=== PATIENT | male | born 1975 | race Caucasian/White ===

== ENCOUNTER 2017-01-23 18:36 | Emergency (ER) | payer MEDICAID ==
[~2017-01-23] VITALS: Ht 185.4 cm; Wt 104.3 kg
[~2017-01-23 18:36] MED LIST: ACET-6134 PO
--- NOTE | 2017-01-23 19:25 | NUR ---
PT TAKEN TO BED 6
[2017-01-23 19:36] VITALS: BP 142/84
--- NOTE | 2017-01-23 19:36 | NUR ---
41 Y/O M W/C/O DIZZINESS, HEADACHESX 1 WK AND UPPER BACK PAIN X 2 YEARS S/P INJURY AT WORK, GETTING WORSE LATELY. DENIES ANY MED HX.
[2017-01-23] MEDS ORDERED: IBUP-2213 PO (19:42)
--- NOTE | 2017-01-23 19:55 | NUR ---
Dr. Styles evaluating patient at bedside.
[2017-01-23] MEDS ORDERED: KETOROLAC 30 MG/ML VIAL IM ONE (20:05)
[2017-01-23 20:40] VITALS: BP 146/91
--- NOTE | 2017-01-23 20:40 | NUR ---
Patient discharged with v/s stable. Written and verbal after care instructions given and explained. Patient alert, oriented and verbalized understanding of instructions. Ambulatory with steady gait. All questions addressed prior to discharge. ID band removed. Patient advised to follow up with PMD. Rx of VALIUM AND NAPROSYN given. Patient educated on indication of medication including possible reaction and side effects. Opportunity to ask questions provided and answered.
== END 2017-01-23 20:40 | disposition home or self-care (01) ==
LOC: MED 18:36
DX: M54.6 Pain in thoracic spine (principal); Z79.899 Other long term (current) drug therapy
CPT/HCPCS: 93005; 96372; 99283; J1885

== ENCOUNTER 2017-10-30 21:42 | Emergency (ER) | payer MEDICAID ==
[~2017-10-30] VITALS: Ht 182.9 cm; Wt 102.1 kg
[~2017-10-30 21:42] MED LIST changes: +IBUP-2213 PO
[2017-10-30 21:47] VITALS: BP 139/95
--- NOTE | 2017-10-30 21:47 | NUR ---
PT AMBULATED TO ER BED 9
--- NOTE | 2017-10-30 21:50 | NUR ---
PATIENT PRESENTS TO ED WITH PT CAME IN WITH C/O PAIN IN THE CHEST AND THROAT. PT IS A/O X 4. NKA NO PREVIOUS MEDICAL HX . DENIES N/V/D; SKIN IS PINK/WARM/DRY; EVEN AND STEADY GAIT; LUNGS CLEAR BL; HR EVEN AND REGULAR; PT DENIES ANY FEVER, SOB, OR COUGH AT THIS TIME; PATIENT STATES PAIN OF 8/10 AT THIS TIME with chest pain and 7/10 with pain in the throat; VSS; PATIENT POSITIONED FOR COMFORT; HOB ELEVATED; BEDRAILS UP X2; BED DOWN. ER MD MADE AWARE OF PT STATUS.
--- NOTE | 2017-10-30 22:08 | NUR ---
IS WITH PT
[2017-10-30] MEDS ORDERED: KETOROLAC 30 MG/ML VIAL IM ONE (22:10)
--- NOTE | 2017-10-30 22:20 | NUR ---
XRAY IS WITH PT
--- NOTE | 2017-10-30 22:48 | NUR ---
THROAT CULTURE WAS TAKEN TO LAB
--- NOTE | 2017-10-30 23:17 | NUR ---
pt is resting comfortably in bed.
[2017-10-30 23:30] VITALS: BP 139/95
--- NOTE | 2017-10-30 23:30 | NUR ---
Patient discharged with v/s stable. Written and verbal after care instructions given and explained. Patient alert, oriented and verbalized understanding of instructions. Ambulatory with steady gait. All questions addressed prior to discharge. ID band removed. Patient advised to follow up with PMD. Rx of codeine phosphate/promethazine hydrochloride given. Patient educated on indication of medication including possible reaction and side effects. Opportunity to ask questions provided and answered.
== END 2017-10-30 23:30 | disposition home or self-care (01) ==
LOC: MED 21:42
DX: J40 Bronchitis, not specified as acute or chronic (principal)
CPT/HCPCS: 71045; 81002; 87081; 96372; 99285; J1885

== ENCOUNTER 2018-12-03 23:34 | Emergency (ER) | payer SELFPAY ==
[~2018-12-03] VITALS: Ht 182.9 cm; Wt 95.3 kg
[2018-12-03 23:48] VITALS: BP 125/79
--- NOTE | 2018-12-03 23:48 | NUR ---
PATIENT AMBULATED TO ER BED 9.
--- NOTE | 2018-12-03 23:50 | NUR ---
EKG AT BEDSIDE
--- NOTE | 2018-12-03 23:50 | NUR ---
43/M PRESENTED TO ER WITH SON AT BEDSIDE. AMBULATORY. C/O HEADACHE AND CHESTPAIN SINCE YESTERDAY. NO N/V/D. NO SOB. STATES 9/10 PRESSURE RADIATES TO NECK AND BACK. NO MEDICATIONS TAKEN UPON ARIVAL TO ER. STATES HX COUGHING UP PHLEM. NO RX. NO OTHER MEDICAL HX. VITALS WNL. CLEAR BREATH SOUNDS. EVEN CHEST RISE. WILL CONTINUE TO MONITOR.
--- NOTE | 2018-12-03 23:50 | NUR ---
EKG PERFORMED AT BEDSIDE
[2018-12-03] MEDS ORDERED: IBUPROFEN 600 MG TAB PO ONE (23:55)
[2018-12-04 00:15] VITALS: BP 125/79
--- NOTE | 2018-12-04 00:15 | NUR ---
Patient discharged with v/s stable by Dr Felton. Written and verbal after care instructions given and explained by Dr Fleton. Patient alert, oriented and verbalized understanding of instructions. Ambulatory with steady gait. All questions addressed prior to discharge by Dr Felton. ID band removed by Dr Felton. Patient advised to follow up with PMD by Dr Felton. Rx of Naprosyn given by Dr Felton. Patient educated on indication of medication including possible reaction and side effects by Dr Felton. Opportunity to ask questions provided and answered by Dr Felton.
== END 2018-12-04 00:14 | disposition home or self-care (01) ==
LOC: MED 23:34
DX: S13.9XXA Sprain of joints and ligaments of unspecified parts of neck, initial encounter (principal); M54.5 Low back pain; R51 Headache; Z79.1 Long term (current) use of non-steroidal anti-inflammatories (NSAID); X58.XXXA Exposure to other specified factors, initial encounter; Y93.89 Activity, other specified; Y92.89 Other specified places as the place of occurrence of the external cause; Y99.8 Other external cause status
CPT/HCPCS: 93005; 99283

== ENCOUNTER 2020-10-16 23:37 | Emergency (ER) | payer MEDICAID ==
[~2020-10-16] VITALS: Ht 182.9 cm; Wt 107.0 kg
[~2020-10-16 23:37] MED LIST changes: +ACET-10509 PO; -ACET-6134 PO
[2020-10-16 23:45] VITALS: BP 154/104
[2020-10-17] MEDS ORDERED: NACL 0.9% 1,000 ML IV ONE (01:10)
[2020-10-17 01:38] LABS: EOSINOPHILS # (AUTO) 0.3 K/uL (0-0.4); EOSINOPHILS % (AUTO) 6.3 % (0.0-4.0); HEMATOCRIT 40.2 % (36-52); HEMOGLOBIN 13.6 g/dL (12.0-18.0); LYMPHOCYTES # (AUTO) 1.7 K/uL (2.0-11.5); LYMPHOCYTES % (AUTO) 37.6 % (20.5-51.1); MEAN CORPUSCULAR HEMOGLOBIN 30 pg (27-31); MEAN CORPUSCULAR HGB CONC 34 g/dL (33-37); MEAN CORPUSCULAR VOLUME 88.5 fL (80-94); MONOCYTES # (AUTO) 0.4 K/uL (0.8-1.0); MONOCYTES % (AUTO) 8.5 % (1.7-9.3); NEUTROPHILS # (AUTO) 2.1 K/uL (1.8-7.7); NEUTROPHILS % (AUTO) 46.6 % (42.2-75.2); PLATELET COUNT (AUTO) 162 K/uL (140-450); RED BLOOD CELL COUNT(AUTO) 4.55 MIL/uL (4.20-6.10); RED CELL DISTRIBUTION WIDTH 13.2 % (11.6-13.7); WHITE BLOOD COUNT (AUTO) 4.6 K/uL (4.8-10.8)
[2020-10-17 01:48] LABS: ALBUMIN 3.7 g/dL (3.4-5.0); ANION GAP 13.2 (8-16); CARBON DIOXIDE 23.5 mmol/L (21-32); CREATININE 0.7 mg/dL (0.6-1.3); POTASSIUM 3.7 mmol/L (3.5-5.1); TOTAL BILIRUBIN 0.5 mg/dL (0.0-1.0)
[2020-10-17] MEDS ORDERED: KETOROLAC 30 MG/ML VIAL IVP ONE (02:10)
[2020-10-17] MEDS ORDERED: diphenhydrAMINE 50 MG/ML VIAL IVP ONE (02:10)
[2020-10-17] MEDS ORDERED: PROCHLORPERAZINE 10 MG/2 ML VIAL IVP ONE (02:10)
[2020-10-17 02:43] VITALS: BP 133/89
== END 2020-10-17 02:39 | disposition home or self-care (01) ==
LOC: MED 23:37
DX: G44.209 Tension-type headache, unspecified, not intractable (principal)
CPT/HCPCS: 36415; 70450; 80053; 84484; 85025; 93005; 96361; 96374; 96375; 99285; J0780; J1200; J1885; J7030

== ENCOUNTER 2023-04-02 16:35 | Emergency (ER) | payer OTHER, MEDICAID ==
[~2023-04-02] VITALS: Ht 177.8 cm; Wt 104.3 kg
[~2023-04-02 16:35] MED LIST changes: +HYDR-2853 PO
[2023-04-02 18:15] VITALS: BP 136/80; PULSE 91; RESP 20; TEMP 100.4; O2SAT 98
[2023-04-02] MEDS ORDERED: HYDROcodone/APAP 5/325 MG 1 TAB TAB PO ONE (18:25)
[2023-04-02] MEDS ORDERED: KETOROLAC 30 MG/ML VIAL IM ONE (18:25)
[2023-04-02] MEDS ORDERED: IBUP-2213 PO (20:10)
[2023-04-02] MEDS ORDERED: ACET-8905 PO (20:10)
== END 2023-04-02 22:06 | disposition home or self-care (01) ==
LOC: MED 16:35
DX: S82.831A Other fracture of upper and lower end of right fibula, initial encounter for closed fracture (principal); W17.89XA Other fall from one level to another, initial encounter; Y93.89 Activity, other specified; Y92.89 Other specified places as the place of occurrence of the external cause; Y99.0 Civilian activity done for income or pay
CPT/HCPCS: 29515; 73590; 73610; 73630; 96372; 99284; J1885

== ENCOUNTER 2023-04-10 18:53 | Emergency (ER) | payer MEDICAID ==
[~2023-04-10] VITALS: Ht 188 cm; Wt 104.3 kg
[~2023-04-10 18:53] MED LIST changes: +ACET-8905 PO
[2023-04-10 19:50] VITALS: BP 147/96; PULSE 61; RESP 20; TEMP 98; O2SAT 99
[2023-04-10] MEDS ORDERED: KETOROLAC 30 MG/ML VIAL IM STA (20:59)
[2023-04-10] MEDS ORDERED: HYDROcodone/APAP 10/325 MG 1 TAB TAB PO STA (20:59)
[2023-04-10] MEDS ORDERED: HYDR-5191 PO (21:45)
[2023-04-10] MEDS ORDERED: IBUP-2218 PO (21:48)
[2023-04-10 22:04] VITALS: BP 135/88; PULSE 60; RESP 20; TEMP 98; O2SAT 99
== END 2023-04-10 22:04 | disposition home or self-care (01) ==
LOC: MED 18:53
DX: S82.891A Other fracture of right lower leg, initial encounter for closed fracture (principal); I10 Essential (primary) hypertension; Z79.899 Other long term (current) drug therapy; X58.XXXA Exposure to other specified factors, initial encounter; Y93.89 Activity, other specified; Y92.89 Other specified places as the place of occurrence of the external cause; Y99.8 Other external cause status
CPT/HCPCS: 96372; 99283; J1885

== ENCOUNTER 2024-01-09 21:41 | Emergency (ER) | payer MEDICAID, OTHER ==
[~2024-01-09] VITALS: Ht 188 cm; Wt 90.7 kg
[~2024-01-09 21:41] MED LIST changes: -ACET-10509 PO; +ACET500T99 PO; +HYDR-5071 PO; +IBUP-2218 PO
[2024-01-09 21:46] VITALS: BP 135/89; PULSE 59; RESP 16; TEMP 98; O2SAT 98
[2024-01-09 22:31] VITALS: BP 135/89; PULSE 59; RESP 16; TEMP 98; O2SAT 98
[2024-01-09 22:43] LABS: BASOPHILS # (AUTO) 0.1 K/uL (0.00-0.22); BASOPHILS % (AUTO) 1.4 % (0.0-2.0); EOSINOPHILS # (AUTO) 0.7 K/uL (0-0.4); EOSINOPHILS % (AUTO) 12.2 % (0.0-4.0); HEMATOCRIT 40.3 % (36-52); HEMOGLOBIN 13.7 g/dL (12.0-18.0); LYMPHOCYTES # (AUTO) 1.9 K/uL (2.0-11.5); LYMPHOCYTES % (AUTO) 32.6 % (20.5-51.1); MEAN CORPUSCULAR HEMOGLOBIN 29 pg (27-31); MEAN CORPUSCULAR HGB CONC 34 g/dL (33-37); MEAN CORPUSCULAR VOLUME 86.8 fL (80-94); MONOCYTES # (AUTO) 0.6 K/uL (0.8-1.0); MONOCYTES % (AUTO) 9.4 % (1.7-9.3); NEUTROPHILS # (AUTO) 2.6 K/uL (1.8-7.7); NEUTROPHILS % (AUTO) 44.4 % (42.2-75.2); PLATELET COUNT (AUTO) 164 K/uL (140-450); RED BLOOD CELL COUNT(AUTO) 4.64 MIL/uL (4.20-6.10); RED CELL DISTRIBUTION WIDTH 14.1 % (11.6-13.7); WHITE BLOOD COUNT (AUTO) 5.9 K/uL (4.8-10.8)
[2024-01-09 22:54] LABS: CALCIUM 8.7 mg/dL (8.5-10.1); CARBON DIOXIDE 23.9 mmol/L (21-32); CHLORIDE 106 mmol/L (98-107); CREATININE 0.8 mg/dL (0.6-1.3); GFR ARICAN-AMERICAN 132 mL/min (>90); GFR NON ARICAN-AMERICAN 109 mL/min (>90); GLUCOSE 120 mg/dL (74-106); POTASSIUM 3.9 mmol/L (3.5-5.1); SODIUM SERUM 140 mmol/L (136-145); UREA NITROGEN, BLOOD 11 mg/dL (7-18)
[2024-01-09 22:55] LABS: INR 1.03 (0.8-1.2); PARTIAL THROMBOPLASTIN TIME 25.8 secs (22-35.6); PROTHROMBIN TIME 10.8 secs (10.8-13.4)
[2024-01-09] MEDS ORDERED: KETOROLAC 30 MG/ML VIAL IVP ONE (22:55)
[2024-01-09 23:08] LABS: ALANINE AMINOTRANSFERASE 154 U/L (12-78); ALBUMIN 3.5 g/dL (3.4-5.0); ALKALINE PHOSPHATASE 90 U/L (50-136); ASPARTATE AMINOTRANSFERASE 33 U/L (15-37); TOTAL BILIRUBIN 0.4 mg/dL (0.0-1.0); TOTAL PROTEIN, SERUM 7.3 g/dL (6.4-8.2)
[2024-01-10] MEDS ORDERED: predniSONE 20 MG TAB ONE (00:44)
[2024-01-10] MEDS: predniSONE 20 MG TAB PO ONE (00:46)
[2024-01-10] MEDS: KETOROLAC 60 MG/2 ML VIAL IM ONE (00:53)
[2024-01-10 02:30] VITALS: O2SAT 98
[2024-01-10] MEDS ORDERED: IBUP-2218 PO (02:46)
[2024-01-10] MEDS ORDERED: PRED20TA5 PO (02:46)
== END 2024-01-10 02:57 | disposition home or self-care (01) ==
LOC: MED 21:41
DX: R07.89 Other chest pain (principal); R42 Dizziness and giddiness; J30.9 Allergic rhinitis, unspecified; I10 Essential (primary) hypertension; Z79.899 Other long term (current) drug therapy
CPT/HCPCS: 36415; 71046; 80053; 83880; 84484; 85025; 85610; 85730; 93005; 96372; 99285; J1885; J7512